=== PATIENT | male | born 1930 | race Caucasian/White ===

== ENCOUNTER 2017-05-15 14:39 | Inpatient (IN) | payer MEDICARE, OTHER ==
[2017-05-15] MEDS ORDERED: Acetaminophen TAB* 325 MG PO PRN (15:53)
[2017-05-15] MEDS ORDERED: Al Hydrox/Mg Hydrox/Simet LIQ* 30 ML UDC PO PRN (15:53)
[2017-05-15] MEDS ORDERED: Aspirin EC Low Dose* 81 MG TAB.EC PO SCH (18:00)
[2017-05-15] MEDS ORDERED: [UNRECOGNIZED DRUG - OTHER] PO SCH (18:00)
[2017-05-15] MEDS ORDERED: NON FORMULARY MED* (Melatonin [Melatonin] 5 MG) PO SCH (18:00)
[2017-05-15] MEDS: Atorvastatin* 10 MG TAB PO SCH (18:15)
[2017-05-15] MEDS: Metoprolol Succinate XL TAB* 25 MG PO SCH (18:16)
[2017-05-15 18:32] LABS: INR 0.94 (0.77-1.02)
[2017-05-15 18:40] LABS: EGFR Non-African American 104.7 (>60)
--- NOTE | 2017-05-15 19:49 | RAD ---
INDICATION: Subacute CVA. COMPARISON: There are no prior studies available for comparison. TECHNIQUE: Multiple grayscale, color and Doppler tracings of the common, internal and external carotid and vertebral arteries were obtained. Stenosis estimations reflect velocity criteria that it been correlated to angiographic stenosis calculations based on the distal internal carotid diameter. RIGHT CAROTID: There is mild to moderate hyperechoic plaque within the right carotid bulb and proximal internal carotid artery.. The peak systolic velocity in the proximal right internal carotid artery is 67 cm/s and the maximum end-diastolic velocity is 13 cm/s. The peak systolic velocity in the distal right common carotid artery is 58 cm/s and the maximum end-diastolic velocity is 10 cm/s. The internal to common carotid artery ratio is 1.2. This would be consistent with a less than 50% stenosis. LEFT CAROTID: There is mild to moderate hyperechoic plaque within the left carotid bulb and proximal internal carotid artery. The peak systolic velocity in the proximal left internal carotid artery is 72 cm/s and the maximum end-diastolic velocity is 18 cm/s. The peak systolic velocity in the distal left common carotid artery is 70 cm/s and the maximum end-diastolic velocity is 11 cm/s. The internal to common carotid artery ratio is 1.0. This would be consistent with a less than 50% stenosis. VERTEBRALS: There is antegrade flow in both vertebral arteries. IMPRESSION: THERE IS MILD TO MODERATE BILATERAL PLAQUE PRESENT WITHIN THE PROXIMAL INTERNAL CAROTID ARTERIES. NO HEMODYNAMICALLY SIGNIFICANT STENOSIS IS SEEN. CPT II Codes: 3100F
[2017-05-15] MEDS: Multivitamins/Minera Areds(NF) 1 CAP CAP PO SCH (20:14)
[2017-05-15] MEDS: Omeprazole CAP* 20 MG PO SCH (20:15)
--- NOTE | 2017-05-15 20:33 | HP ---
ADMISSION HISTORY AND PHYSICAL: DATE OF ADMISSION: 05/15/17 REFERRING FACILITY: [facility]. Attending physician there was Dr. Renetta Skaggs. PRIMARY CARE PHYSICIAN: Unknown. ADMITTING AND ATTENDING PHYSICIAN: Fabrice Gomez MD * (DICTATED BY MARVIN RICHARDS NP) CHIEF COMPLAINT: Falls and recent stroke. HISTORY OF PRESENT ILLNESS: This is an 86-year-old male who has a history of Lewy body dementia. He lives at [facility]. He normally is very high functioning, although he does have his baseline dementia and then suddenly he felt he was on the floor looking up at the ceiling and it was questionable whether he actually syncopized and he does not know what happened given that he has a Lewy body dementia. It is unclear what actually precipitated the event. It looks like the patient was diagnosed with urinary tract infection on . Also per the record, the patient had a stroke approximately 3 weeks ago; however, no acute intervention was taken at that time. At this point, the patient was CAT scanned after his fall and it looks like he may have had an additional stroke on top of the old one. The head CT showed new abnormality and a contrast CT was also obtained, which showed a subacute stroke in the right frontal region. Because [facility] does not have neuro services available, a call was made to Dr. Brenda Kay, who was on- call for Dr. Arriaza and arrangements were made to transfer the patient to us for admission for further workup of this subacute finding. Due to the patient's baseline dementia, review of systems is difficult to obtain. He is not in any obvious distress. He does not report a headache or fever or chills. He does not have a good recollection of the event. PAST MEDICAL HISTORY: Significant for per the report received from the previous institution, the patient has heart disease, lung disease, cancer and mental disorders, dementia, and 2 pacemakers, balance problems, and it does not give any definitive whether he has COPD or coronary artery disease or any valvular disease and the patient is not able to articulate that. Hypertension. PAST SURGICAL HISTORY: There is not any surgical history listed here as well. The patient does state that he does have hypertension. FAMILY HISTORY: Unable to obtain. SOCIAL HISTORY: Because the patient lives in a home, I am assuming no substance abuse or alcohol use. It does state in the report that he was a former smoker. PHYSICAL EXAMINATION VITAL SIGNS: Currently, blood pressure 185/98, O2 saturation 95% on room air, respiratory rate 16, heart rate 88, temperature 98.6. HEENT: The patient is atraumatic, normocephalic. PERRLA with nonicteric sclerae. NECK: Supple, nontender. No JVD noted. No thyromegaly appreciated. CARDIOVASCULAR: Heart rate and rhythm are regular. S1, S2 present. No murmurs , gallops, or rubs. CHEST WALL: He does have on the left anterior chest 2 surgical scars, which appear to be where his pacemakers were inserted. ABDOMEN: Soft, nontender. MUSCULOSKELETAL: No clubbing. No cyanosis. No edema. He has +2 distal pulses palpable. He has brisk cap refill. It is my understanding he is ambulatory, although I did not witness this. NEUROLOGIC: He is alert, oriented to person, not oriented to place or time. The patient required several moments of prompting. He did articulate . Beyond that, there were no focal neurologic deficits noted upon exam. PSYCHIATRIC: He was pleasant and appropriate. SKIN: Warm, dry, and intact. LABORATORY DATA: Laboratories from the ER pending, but from the previous facility it appears that sodium 143, chloride 106, BUN 11, glucose 107, potassium 3.9, CO2 of 32, creatinine 0.8. Calcium 9.2. Troponin was 0.015. ALT 23, AST 18. I do not have a CBC. IMAGING: Per the reports that we obtained from the sending facility, it shows subacute infarct on the CAT scan with contrast in the right frontal region of the brain. Dr. Brenda Kay will be at bedside to evaluate the patient and evaluate the films. IMPRESSION: 1. Fall status post cerebrovascular accident, rule out new infarct. 2. History of hypertension. 3. History of Lewy body dementia. 4. History of gastroesophageal reflux disease. 5. History of pacemaker insertion, perhaps underlying cardiac disease. PLAN: The patient has been admitted to medical service. Dr. Brenda Kay has already been consulted. Plan is to obtain a MRI and echocardiogram and ultrasound of the patient's carotids. He is already on aspirin at baseline. We will evaluate the results of these tests and then defer to Neurology for any further recommendations. At this point, the patient is neurologically intact. We will continue his home medications. He is a full code according to the report that we have received, and I believe either his daughter or his are his healthcare proxies. They are not at the bedside for this exam; however, it does appear from the paperwork that they were at the bedside at [facility]. We expect the patient's stay to be at least 2 days. This plan has been discussed with Dr. Franklyn Gomez who is the attending on this admission. The rest of the patient's course will be determined by further diagnostics, laboratories and any other info from other providers is warranted during this admission. MARVIN RICHARDS NP [id number]/[facility] #: [id number] YUE
[2017-05-15 20:43] LABS: ABS Basophils 0.1 10^3/ul (0-0.2); ABS Eosinophils 0.3 10^3/ul (0-0.6); ABS Lymphocytes 1.9 10^3/ul (1.0-4.8); ABS Monocytes 0.8 10^3/ul (0-0.8); ABS Neutrophils 4.3 10^3/ul (1.5-7.7); ABS Nucleated RBC 0 10^3/ul; Eosinophil % 3.8 % (0-6); Hematocrit 40 % (42-52); Hemoglobin 13.6 g/dl (14.0-18.0); Lymphocyte % 25.6 % (25-47); Mean Corpuscular HGB Conc 34 g/dl (31-36); Mean Corpuscular Hemoglobin 33 pg (27-31); Mean Corpuscular Volume 95 fL (80-94); Mean Platelet Volume 9 um3 (7.4-10.4); Nucleated Red Blood Cells % 0.1; Platelet Count 140 10^3/ul (150-450); Red Blood Count 4.17 10^6/ul (4.0-5.4); Red Cell Distribution Width 13 % (10.5-15); White Blood Count 7.3 10^3/ul (3.5-10.8)
--- NOTE | 2017-05-15 21:16 | CONS ---
NEUROLOGY CONSULTATION: DATE OF CONSULT: 05/15/17 LOCATION: The patient is in the emergency department. REASON FOR CONSULT: Subacute stroke. HISTORY OF PRESENT ILLNESS: Minor Haq is an 86-year-old man with a history of Lewy body dementia, who was transferred from the [facility] today after he was found to have a probable subacute right frontal stroke. I spoke with Dr. Skaggs in the ER earlier today, who reported that he had come in with falls including this morning. The patient's dementia limits the history , but he does report that he believes he fell in the bathroom this morning. Apparently, he had been having more falls at home recently, but no other clear symptoms of stroke. He was brought to the emergency department and a CT scan of the brain suggested the presence of a mass versus a subacute stroke in the right frontal region and when this was followed up with a CT with contrast and showed gyral enhancement, it was felt to represent a subacute stroke and he was transferred here for neurologic consultation and stroke workup. The patient tells me that he has been having some increased trouble walking recently and thinks that his left leg is more of a problem than his right leg. He, otherwise, denies any new weakness in his arms or legs or numbness. He denies any vision changes. When asked if he has any swallowing difficulty, he says that he has some mucus, but other denies any dysphagia. He denies any vertigo. PAST MEDICAL HISTORY: According to records available in the outpatient record as I do not have access to his [facility] records right now, include the following : 1. Lewy body dementia. 2. BPH. 3. Hypertension. 4. Hyperlipidemia. 5. Overactive bladder. 6. Prostate cancer. 7. Macular degeneration. 8. Presence of a pacemaker. HOME MEDICATIONS: 1. Guaifenesin 200 mg q.4 hours p.r.n. 2. Bismuth p.r.n. 3. Maalox p.r.n. 4. Acetaminophen 650 mg q.4 hours p.r.n. 5. Milk of magnesia. 6. Omeprazole 20 mg b.i.d. 7. Multivitamin twice daily. 8. Melatonin 5 mg at night. 9. Metoprolol 25 mg q.p.m. 10. Atorvastatin 10 mg q.p.m. 11. Aspirin 81 mg daily. 12. Folic acid - cyanocobalamin - vitamin D 2 tablets q.p.m. 13. Vitamin D 5000 units daily. ALLERGIES: Records indicate he has no known drug allergies. FAMILY HISTORY: The patient reports that his father had some heart problems. He does not believe anybody in the family had strokes. SOCIAL HISTORY: He is and lives in assisted living with his . 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 He denies tobacco use or alcohol use. He says he used to drink a lot in his younger years, but not in many years. REVIEW OF SYSTEMS: The patient denies any new respiratory or cardiac symptoms; otherwise, as per the HPI. PHYSICAL EXAM: Vital Signs: Temperature 98.6, blood pressure 185/98, heart rate 88, oxygen saturation 95% on room air. On general examination, he is an elderly-appearing man, in no acute distress. He is very pleasant and cooperative. He has arcus senilis bilaterally. He has 2 well healed incisions over his left upper chest and a device is palpable in his left upper chest. His heart is in a regular rate and rhythm with no murmurs , rubs, or gallops. Lungs are clear to auscultation bilaterally. There are no carotid bruits. There is no extremity edema. His skin appears intact. On neurologic examination, he is fully awake and alert. He was aware it was 2017, but stated the month was August. He correctly stated age and date of . He had some difficulty describing the cookie theft picture and mentioned a potted plant instead of a cookie jar. He was able to name most objects on the stroke cards including a hammock. He had some difficulties in reading the stroke cards, making word substitutions. On cranial nerve exam, pupils were equal, round, and reactive from 3 to 2 mm bilaterally. Versions were full with the exception of some limitation of upgaze with no nystagmus. Maldonado were full to confrontation. Facial sensation and musculature was full and symmetric, though he seemed to have some decreased activation with smile on the right side. Hearing was intact to finger rub, better on the left. The palate elevates symmetrically and the tongue is midline. On motor examination, he has some increased tone in the left greater than right upper extremities. His strength is full proximally and distally with no pronator drift. Sensation is intact to pinprick in the upper and lower extremities. Reflexes are 2+ in the upper extremities, 2+ at the knees, absent at ankles with downgoing toes. Finger -to-nose is intact without ataxia. I did not ambulate him in the emergency department. DIAGNOSTIC STUDIES/LAB DATA: No laboratory data is available for my review at this time. I reviewed his CT scan of the brain without contrast, which shows an area of hypodensity in the right frontal lobe and I also questioned whether there is some subacute infarction in the right basal ganglia as well. IMPRESSION: Minor Haq is an 86-year-old man with a history of dementia, Lewy body dementia by outside records, who was transferred from [facility] for a stroke workup after a probable right frontal subacute stroke was identified on CT scan, which was done secondary to increased falls at home. He does not have any clear focal weakness on his exam , but his gait imbalance may very well be secondary to this subacute stroke. Ideally, we would get MRI scan of the brain to evaluate the territories of stroke, but the presence of the pacemaker, is most likely going to preclude this. He will come into the hospital for monitoring on telemetry as well as echocardiogram, fasting lipid profile in the morning as well as hemoglobin A1c. He should have therapy evaluations including Physical Therapy for recommendations on his rehab needs. I would suggest changing him over to Plavix 75 mg daily and he will need to be taken off of omeprazole as there is an interaction between the two. He will also have carotid ultrasound. Thank you for this consultation. [id number]/[facility] #: [id number] YUE
[2017-05-16] MEDS: Omeprazole CAP* 20 MG PO SCH (07:30)
[2017-05-16] MEDS ORDERED: hydrALAZINE IV* 20 MG/ML VIAL IV SLOW PU PRN (07:49)
[2017-05-16] MEDS: Multivitamins/Minera Areds(NF) 1 CAP CAP PO SCH ×2 (08:54→20:17)
[2017-05-16] MEDS: Cholecalciferol TAB* 1000 UNITS PO SCH (09:03)
--- NOTE | 2017-05-16 13:04 | PN ---
Subjective Date of Service: 05/16/17 Interval History: Pt is feeling well. He denies any pain. He denies SOB. He states he did fine when he got up to the chair earlier today. Objective Active Medications: Acetaminophen (Tylenol Tab*) 650 mg PO Q4H PRN PRN Reason: FEVER/PAIN Al Hydrox/Mg Hydrox/Simethicone (Maalox Plus*) 15 ml PO Q4H PRN PRN Reason: NAUSEA Aspirin (Aspirin Ec Low Dose*) 81 mg PO QPM [facility] Last Admin: 05/15/17 18:15 Dose: 81 mg Atorvastatin Calcium (Lipitor*) 10 mg PO QPM [facility] Last Admin: 05/15/17 18:15 Dose: 10 mg Cholecalciferol (Vitamin D Tab*) 5,000 units PO DAILY [facility] Last Admin: 05/16/17 09:03 Dose: 5,000 units Hydralazine HCl (Apresoline Iv*) 5 mg IV SLOW PU Q6H PRN PRN Reason: Systolic Bp Greater Than: 180 Last Admin: 05/16/17 08:58 Dose: 5 mg Metoprolol Succinate (Toprol Xl Tab*) 25 mg PO QPM [facility] Last Admin: 05/15/17 18:16 Dose: 25 mg Multivitamins/Minerals (Preservision Areds(Multivitamins/Mineral)(Nf)) 1 cap PO BID [facility] Last Admin: 05/16/17 08:54 Dose: Not Given Non-Formulary Medication (Folic Vare-Dkbdinwgipgvzk-Zza [D 1000 Plus Aloe]) 2 tab PO QPM [facility] Last Admin: 05/15/17 18:03 Dose: Not Given Non-Formulary Medication (Melatonin [Melatonin]) 5 mg PO QPM [facility] Last Admin: 05/15/17 17:51 Dose: Not Given Omeprazole (Prilosec Cap*) 20 mg PO BID [facility] Last Admin: 05/16/17 07:30 Dose: 20 mg Vital Signs - 8 hr 05/16/17 05/16/17 07:48 07:56 Temperature 97.6 F Pulse Rate 61 Respiratory 16 16 Rate Blood Pressure 181/73 (mmHg) O2 Sat by Pulse 97 Oximetry Oxygen Devices in Use Now: None Appearance: Elderly male sitting up in a chair, NAD Eyes: No Scleral Icterus Ears/Nose/Mouth/Throat: Mucous Membranes Moist Respiratory: Symmetrical Chest Expansion and Respiratory Effort, Clear to Auscultation Cardiovascular: NL Sounds; No Murmurs; No JVD, RRR, No Edema Abdominal: NL Sounds; No Tenderness; No Distention Extremities: No Clubbing, Cyanosis Skin: No Rash or Ulcers, No Nodules or Sclerosis Neurological: - - pleasantly confused, states his is in the hospital because of falls (she is not) Result Diagrams: 05/15/17 20:13 05/15/17 20:13 Assess/Plan/Problems-Billing Mr Haq is an 86 yo M who has a h/o Lewy Body Dementia, HTN, HLD and overactive bladder who presented to [facility] because of increased falls and was found to have a subacute CVA of the R frontal CVA and was sent to [facility] for further evaluation. - Patient Problems (1) CVA (cerebral vascular accident) Current Visit: Yes Status: Acute Code(s): I63.9 - CEREBRAL INFARCTION, UNSPECIFIED SNOMED Code(s): 333075956 Comment: The patient appears to have had a subacute CVA. I suspect it may be leading to his falls. Can not have MRI given pacemaker. Echo pending. No hemodynamically significant carotid stenosis noted. Will get PT/OT evals to ensure he is safe to return to his assisted living facilitly. Will change from ASA to plavix as recommended by Dr. Kay. Will also change from omeprazole to famotidine. (2) HTN (hypertension) Current Visit: Yes Status: Acute Code(s): I10 - ESSENTIAL (PRIMARY) HYPERTENSION SNOMED Code(s): 84102822 Comment: The patient's BP is not under optimal control. Will start amlodipine 5mg daily. (3) HLD (hyperlipidemia) Current Visit: Yes Status: Acute Code(s): E78.5 - HYPERLIPIDEMIA, UNSPECIFIED SNOMED Code(s): 09736708 Comment: Continue lipitor 10mg daily. (4) Lewy body dementia Current Visit: Yes Status: Acute Comment: Continue to re-orient as needed. Pt's mental status is at baseline. (5) DVT prophylaxis Current Visit: Yes Status: Acute Code(s): FKX8663 - SNOMED Code(s): 639714047 Comment: Start SQ heparin (6) Full code status Current Visit: Yes Status: Acute Code(s): Z78.9 - OTHER SPECIFIED HEALTH STATUS SNOMED Code(s): 348313757
[2017-05-16] MEDS: amLODIPine TAB* 5 MG PO SCH (13:52)
[2017-05-16] MEDS: Clopidogrel TAB* 75 MG PO SCH (13:52)
[2017-05-16] MEDS: Heparin VIAL(*) 5000 UNITS/ML VIAL (FIVE THOUSAND) SUBCUT SCH ×2 (13:53→20:17)
--- NOTE | 2017-05-16 15:01 | ED ---
Derian Juan Jennifer, scribed for Emre Mendez MD on 05/15/17 at 1604 . Neurological HPI - HPI Summary HPI Summary: The patient is an 86 year old male who was recommended to the ED by [facility] after he had fallen four days ago. The patient fell again this morning. He had a stroke about three weeks ago. The patient currently lives in a correction in [place] and uses a walker to get around. - History of Current Complaint Chief Complaint: EDNeurologicalDeficit Stated Complaint: POSSIBLE STROKE Time Seen by Provider: 05/15/17 15:55 Hx Obtained From: Patient Onset/Duration: Started days ago - four days ago, Still Present Timing: Constant Onset Severity: Mild Current Severity: Mild Pain Intensity: 0 Pain Scale Used: 0-10 Numeric Character: Other: - Fall Frequency: Episodes x___ - two episodes. First fall was four days ago. Second fall was this morning. Aggravating: Nothing Alleviating: Nothing Associated Signs and Symptoms: Positive: Nothing - Allergy/Home Medications Allergies/Adverse Reactions: Allergies Allergy/AdvReac Type Severity Reaction Status Date / Time No Known Allergies Allergy Verified 05/15/17 17:44 Home Medications: Home Medications Acetaminophen TAB* [Tylenol TAB*] 650 mg PO Q4H PRN 05/15/17 [History Confirmed 05/15/17] Al Hydrox/Mg Hydrox/Simet LIQ* [Maalox Plus*] 15 ml PO Q4H PRN 05/15/17 [ History Confirmed 05/15/17] Aspirin EC Low Dose* [Ecotrin EC Low Dose 81 MG*] 81 mg PO QPM 05/15/17 [ History Confirmed 05/15/17] Atorvastatin* [Lipitor*] 10 mg PO QPM 05/15/17 [History Confirmed 05/15/17] Bismuth Subsalicylate* [Peptic Relief*] 15 ml PO Q4HR PRN 05/15/17 [History Confirmed 05/15/17] Cholecalciferol TAB* [Vitamin D TAB*] 5,000 units PO DAILY 05/15/17 [History Confirmed 05/15/17] Folic Ukhb-Vujyznwmgarbel-Uno [D 1000 Plus Aloe] 2 tab PO QPM 05/15/17 [History Confirmed 05/15/17] Guaifenesin [Mucus Relief Chest Conges] 200 mg PO Q4HR PRN 05/15/17 [History Confirmed 05/15/17] Magnesium Hydroxide LIQ* [Milk of Magnesia LIQ*] 30 ml PO DAILY 05/15/17 [ History Confirmed 05/15/17] Melatonin 5 mg PO QPM 05/15/17 [History Confirmed 05/15/17] Metoprolol Succinate XL TAB* [Toprol XL TAB*] 25 mg PO QPM 05/15/17 [History Confirmed 05/15/17] Multiple Vitamins W/ Minerals [Preservision Areds 2 + Mu] 1 cap PO BID 05/15/17 [History Confirmed 05/15/17] Omeprazole CAP* [Prilosec CAP* 20 MG] 20 mg PO BID 05/15/17 [History Confirmed 05/15/17] risperiDONE TAB* [Risperdal*] 0.5 mg PO BID 05/16/17 [History Confirmed 05/16/17 ] PMH/Surg Hx/FS Hx/Imm Hx Endocrine/Hematology History: Denies: Hx Diabetes Cardiovascular History: Reports: Hx Hypertension - Immunization History Immunizations Up to Date: Yes Infectious Disease History: No Infectious Disease History: Denies: Traveled Outside the [place] in Last 30 Days - Family History Known Family History: Negative: Diabetes - Social History Alcohol Use: None Substance Use Type: Reports: None Smoking Status (MU): Former Smoker Review of Systems Negative: Fever Neurological: Other - Fall All Other Systems Reviewed And Are Negative: Yes Physical Exam - Summary Physical Exam Summary: Appearance: The patient is well-nourished in no acute distress and in no acute pain. Skin: The skin is warm and dry and skin color reflects adequate perfusion. HEENT: ~The head is normocephalic and atraumatic. The pupils are equal and reactive. The conjunctivae are clear and without drainage. ~Nares are patent and without drainage. ~Mouth reveals moist mucous membranes and the throat is without erythema and exudate. ~The external ears are intact. The ear canals are patent and without drainage. The tympanic membranes are intact. Neck: the neck is supple with full range of motion and non-tender. There are no carotid bruits. ~There is no neck vein distension. Respiratory: Chest is non-tender. ~Lungs are clear to auscultation and breath sounds are symmetrical and equal. Cardiovascular: Heart is regular rate and rhythm. ~There is no murmur or rub auscultated. ~~There is no peripheral edema and pulses are symmetrical and equal. Abdomen: The abdomen is soft and non-tender. ~There are normal bowel sounds heard in all four quadrants and there is no organomegaly palpated. Musculoskeletal: There is no back tenderness noted. ~Extremities are non-tender with full range of motion. ~There is good capillary refill. ~There is no peripheral edema or calf tenderness elicited. Neurological: Patient is alert and oriented to person, place and time. ~The patient has symmetrical motor strength in all four extremities. ~Cranial nerves are grossly intact. Deep tendon reflexes are symmetrical and equal in all four extremities. Psychiatric: The patient has an appropriate affect and does not exhibit any anxiety or depression. Triage Information Reviewed: Yes Vital Signs On Initial Exam: Initial Vitals Temp Pulse Resp BP Pulse Ox 98.6 F 88 16 185/98 95 05/15/17 14:41 05/15/17 14:41 05/15/17 14:41 05/15/17 14:41 05/15/17 14:41 Vital Signs Reviewed: Yes Diagnostics - Vital Signs Vital Signs Temp Pulse Resp BP Pulse Ox 05/15/17 14:41 98.6 F 88 16 185/98 95 - Laboratory Result Diagrams: 05/15/17 20:13 05/15/17 20:13 Lab Statement: Any lab studies that have been ordered have been reviewed, and results considered in the medical decision making process. Course/Dx - Course Course Of Treatment: Mr. Haq was sent over from [facility]. He was found to have a subacute CVA and is being admitted for further W/U. - Diagnoses Provider Diagnoses: CVA (cerebral vascular accident) Discharge - Discharge Plan Condition: Good Disposition: ADMITTED TO [facility] documentation as recorded by the Derian keith Jennifer accurately reflects the service I personally performed and the decisions made by me, Emre Mendez MD.
--- NOTE | 2017-05-16 15:07 | ECHO ---
Patient: FLORENCE FONTANA [facility] Rec#: [id number] : 1930 Date: 05/16/2017 Age: 86y Height: 160 cm / 63.0 in Weight: 65.8 kg / 145.0 lbs Sex: M BSA: 1.7 Room#: 439 Admit Date#: 05/15/2017 Type: Inpatient Referring: Mihaela Carvalho Reading: Evaristo Huntley MD Line Runner: Catherine Reyes RN RDCS Transthoracic Echocardiogram Indication: CVA BP: 155/65 HR: 75 Rhythm: Paced Findings History: HTN, pacemaker, lung disease, Lewy body dementia, GERD Technical Comments: The study quality is fair. Completed at 1330. Left Ventricle: The left ventricular chamber size is normal. Mild to moderate concentric left ventricular hypertrophy is observed. There is increased basal septal hypertrophy noted without evidence of an increased gradient across the left ventricular outflow tract. Global left ventricular wall motion and contractility are within normal limits. Left ventricular systolic function is at the lower limits of normal. The estimated ejection fraction is 50-55%. There is abnormal ventricular septal wall motion consistent with right ventricular pacemaker. There is an E to A reversal in the mitral valve flow pattern suggestive of diastolic dysfunction. Left Atrium: The left atrium is mildly dilated. Right Ventricle: The right ventricular cavity size is normal. The right ventricular global systolic function is low normal. A pacemaker wire is visualized in the right ventricle. Right Atrium: The right atrial cavity size is normal. A pacemaker wire is visualized in the right atrium. Aortic Valve: The aortic valve is trileaflet. The aortic valve leaflets are moderately thickened. Systolic excursion of the aortic valve cusps is reduced. There is aortic annular calcification. There is mild aortic regurgitation. There is mild aortic stenosis. The mean gradient of the aortic valve is 7.6 mmHg. The peak instantaneous gradient of the aortic valve is 13.3 mmHg. The aortic valve area, by peak velocities, is calculated at 1.8 cm2. The aortic valve area, by VTI's, is calculated at 1.8 cm2. Mitral Valve: There is mitral annular calcification. The mitral valve leaflets are mildly thickened. There is mild mitral regurgitation. There is no evidence of mitral stenosis. Tricuspid Valve: The tricuspid valve leaflets are normal. There is trace to mild tricuspid regurgitation. No pulmonary hypertension is noted. There is no tricuspid stenosis. Pulmonic Valve: The pulmonic valve structure is not well visualized. There is a trace pulmonic regurgitation. There is no pulmonic stenosis. Pericardium: There is no significant pericardial effusion. A pericardial fat pad is visualized. Aorta: There is no dilatation of the ascending aorta. The aortic arch is not well visualized. There is no dilation of the aortic root. Pulmonary Artery: The main pulmonary artery is not well visualized. Venous: The inferior vena cava appears normal in size. There is an approximate 50% respiratory change in the inferior vena cava dimension. Summary: There was not any prior study for comparison. Conclusions The left ventricular chamber size is normal. Mild to moderate concentric left ventricular hypertrophy is observed. There is increased basal septal hypertrophy noted without evidence of an increased gradient across the left ventricular outflow tract. The estimated ejection fraction is 50-55%. The left atrium is mildly dilated. A pacemaker wire is visualized in the right ventricle. A pacemaker wire is visualized in the right atrium. There is mild aortic regurgitation. There is mild aortic stenosis. The mean gradient of the aortic valve is 7.6 mmHg. The aortic valve area, by peak velocities, is calculated at 1.8 cm2. There is mild mitral regurgitation. There is trace to mild tricuspid regurgitation. There is a trace pulmonic regurgitation. Measurements Name Value Normal Range RVDdMajor (2D) 2.6 cm (2.2 - 4.4) RAd ISD 4CH 4.8 cm (3.4 - 4.9) RA (A4C)W 3.5 cm (2.9 - 4.6) IVSd (2D) 1.6 cm (0.6 - 1) LVPWd (2D) 1.1 cm (0.6 - 1) LVIDd (2D) 4.6 cm (3.6 - 5.4) LVIDs (2D) 3.4 cm - Aortic Annulus 2 cm (1.4 - 2.6) Ao root diameter (2D) 3.2 cm (2.1 - 3.5) Ascending Ao 2.9 cm (2.1 - 3.4) LA dimension (AP) 2D 3.6 cm (2.3 - 3.8) LAd ISD 4CH 5.7 cm (2.9 - 5.3) LA ISD 4CH W 3.6 cm (2.5 - 4.5) Name Value Normal Range LA ESV SP 4CH (A/L) 55 ml - LA ESV SP 2CH (A/L) 38 ml - LA ESV BP (A/L) 50 ml - LA ESV BP (A/L) index 29.3 ml/m2 - LA ESV SP 4CH (MOD) 52 ml - LA ESV SP 2CH (MOD) 36 ml - Name Value Normal Range MV E-wave Vmax 0.47 m/sec - MV deceleration time 305 msec - MV A-wave Vmax 1.1 m/sec - MV E:A ratio 0.42 ratio - LV septal e' Vmax 0.05 m/sec - LV lateral e' Vmax 0.05 m/sec - LV E:e' septal ratio 9.4 ratio - LV E:e' lateral ratio 9.4 ratio - Name Value Normal Range AV Vmax 1.9 m/sec - AV VTI 43.5 cm - AV peak gradient 13.3 mmHg - AV mean gradient 7.6 mmHg - LVOT diameter 2 cm - LVOT Vmax 1.1 m/sec - LVOT VTI 25.4 cm - LVOT peak gradient 5.1 mmHg - LVOT mean gradient 2.9 mmHg - DOI (VTI) 0.58 ratio - DOI (Vmax) 0.58 ratio - SV LVOT 76 ml - LELAND (continuity Vmax) 1.8 cm2 - LELAND (continuity VTI) 1.8 cm2 - Name Value Normal Range TR Vmax 2.3 m/sec - TR peak gradient 22 mmHg - RAP 8 mmHg - IVC diameter 1.5 cm - Name Value Normal Range PV Vmax 0.76 m/sec -
[2017-05-16] MEDS: Atorvastatin* 10 MG TAB PO SCH (18:46)
[2017-05-16] MEDS: Metoprolol Succinate XL TAB* 25 MG PO SCH (18:46)
[2017-05-16] MEDS: Famotidine TAB* 20 MG PO SCH (20:17)
[2017-05-16] MEDS ORDERED: CMC:Melatonin (NF) 3 MG TAB PO SCH (21:00)
--- NOTE | 2017-05-16 23:11 | PN ---
NEUROLOGY FOLLOWUP NOTE: DATE OF SERVICE: 05/16/17 HISTORY: No acute overnight events. The patient is a little bit confused today , thinking that his is here in the hospital for falls and when I entered the room, he was trying to find out what room she was in. He denies any new neurologic deficits. IN-HOSPITAL MEDICATIONS: 1. Tylenol 650 q.4 p.r.n. 2. Maalox 15 mL p.r.n. 3. Norvasc 5 mg daily, started today. 4. Lipitor 10 mg q.p.m. 5. Vitamin D 5000 units daily. 6. Plavix 75 mg daily. 7. Famotidine 20 mg b.i.d., to start tonight. 8. Heparin 5000 units q.8 hours. 9. Hydralazine 5 mg IV q.6 hours p.r.n. 10. Metoprolol 25 mg q.p.m. 11. Multivitamins. 12. Folic qsls-tgahccfuslxmlh-zjwlrem D 2 tablets q.p.m. 13. Melatonin 5 mg q.p.m. PHYSICAL EXAMINATION: Vital Signs: Temperature 97.6, blood pressure 181/73, heart rate 61, oxygen saturation 97% on room air. His blood pressures have ranged from the highest systolic of 191 and the highest diastolic of 98. His telemetry has shown a paced rhythm. On general examination, he is a well-appearing, pleasant elderly gentleman. He has arcus senilis. His heart is in a regular rate and rhythm with no obvious murmurs. His lungs are clear to auscultation bilaterally. On neurologic examination, he has no dysarthria. Pupils are equal, round, and reactive from 3 to 2 mm bilaterally. Versions are full with the exception of some limitation of upgaze. Maldonado are full confrontation. His face is symmetric. There is no clear focal weakness on manual muscle testing. There is no sensory deficit. I did ambulate him with a walker a short distance in his room and when turning, he tended to drag the left foot and not move it well. DATA: Carotid ultrasound showed [id number] plaque in the proximal ICAs bilaterally with no hemodynamically significant stenosis. No fasting lipid profile was collected today. His CBC showed a slightly low hematocrit of 40, hemoglobin of 13.6, and platelets of 140,000 with a white count of 7.3. Coagulation studies were normal. CMP showed a slightly low CO2 of 21, protein of 6.3, and otherwise is unremarkable. IMPRESSION: Minor Haq is an 86-year-old man with presumed Lewy body dementia , who came in with a subacute right frontal stroke after he was evaluated in the [facility] for falls. His gait imbalance is most likely secondary to this subacute stroke. He, otherwise, looks quite well in terms of any sequelae from this stroke. I have ordered a fasting lipid profile for tomorrow and added on hemoglobin A1c to his labs from yesterday. He has pending echocardiogram as well as PT evaluations. He has been changed to Plavix and omeprazole was changed out for famotidine. I agree with starting an additional blood pressure agent at this point. His ultimate goal blood pressure should be less than 140/80, potentially more aggressive than this, but in a gentleman of his age, we will need to be careful with not making him too hypotensive. Dr. Galvin and Dr. Morales will be taking over the service over the weekend and will receive sign out on the patient. I believe that the patient did already have a Neurology consultation scheduled with Dr. Arriaza for his dementia and so that appointment could be kept provided that he is able to make it. [id number]/[facility] #: [id number] [facility]
[2017-05-17] MEDS: Heparin VIAL(*) 5000 UNITS/ML VIAL (FIVE THOUSAND) SUBCUT SCH (04:56)
[2017-05-17] MEDS: Multivitamins/Minera Areds(NF) 1 CAP CAP PO SCH (07:24)
[2017-05-17] MEDS: Clopidogrel TAB* 75 MG PO SCH (07:38)
[2017-05-17] MEDS: Cholecalciferol TAB* 1000 UNITS PO SCH (07:38)
[2017-05-17] MEDS: amLODIPine TAB* 5 MG PO SCH (07:38)
[2017-05-17] MEDS: Famotidine TAB* 20 MG PO SCH (07:38)
--- NOTE | 2017-05-17 12:42 | PN ---
Progress Note - Progress Note Date of Service: 05/17/17 Note: Time spent on discharge 45 minutes
[2017-05-17 13:13] VITALS: BP 140/65
--- NOTE | 2017-05-18 11:36 | DS ---
CC: Felton Arriaza MD DISCHARGE SUMMARY: DATE OF ADMISSION: DATE OF DISCHARGE: 05/17/17 HISTORY: This 86-year-old man presented with a history of fall. He was brought to [facility] . I note he had been treated for urinary tract infection on 05/12/17. CT scan at [facility] showed a subacute right frontal infarct. He was transferred here for neurologic evaluation and treatm ent. He was seen by Dr. Kay in consultation. She agreed with the diagnosis of right frontal lobe acute infarct. Clopidogrel was added to his regimen. His omeprazole was changed to famotidine to avoid in teraction with the clopidogrel. The patient was able to walk with a walker and contact guarding. The patient had amlodipine added for better blood pressure control as well. FINAL DIAGNOSES: 1. Acute right frontal cerebrovascular infarct. 2. Lewy body dementia. 3. Hypertension. 4. Gastroesophageal reflux disease. 5. Permanent pacemaker. DISCHARGE MEDICATIONS: 1. Amlodipine 5 mg daily. 2. Clopidogrel 75 mg daily. 3. Famotidine 20 mg b.i.d. 4. Bismuth subsalicylate 15 mL every 4 hours p.r.n. 5. Maalox Plus 15 mL every 4 hours p.r.n. 6. Acetaminophen 650 mg every 4 hours p.r.n. 7. Milk of Magnesia 30 mL daily. 8. Multivitamin with mineral b.i.d. 9. Melatonin 5 mg h.s. 10. Metoprolol succinate 25 mg h.s. 11. Atorvastatin 10 mg h.s. 12. Aspirin 81 mg h.s. 13. Calcium with D3 two tabs daily. 14. Calcium 5000 units daily. 15. Guaifenesin 200 mg every 4 hours p.r.n. 16. Risperidone 0.5 mg b.i.d. [id number]/[facility] #: [id number]
== END 2017-05-17 14:00 | disposition home or self-care (01) | DRG 66 ==
LOC: ED 14:39 → MEDTELE 15:52
PROVIDERS: ADMIT Nurse Practitioner Adult Health; ATTEND Internal Medicine
DX: I63.9 Cerebral infarction, unspecified (principal); F02.80 Dementia in other diseases classified elsewhere, unspecified severity, without behavioral disturbance, psychotic disturbance, mood disturbance, and anxiety; G31.83 Neurocognitive disorder with Lewy bodies; E78.5 Hyperlipidemia, unspecified; I10 Essential (primary) hypertension; K21.9 Gastro-esophageal reflux disease without esophagitis; R26.9 Unspecified abnormalities of gait and mobility; N32.81 Overactive bladder; N40.0 Benign prostatic hyperplasia without lower urinary tract symptoms; H35.30 Unspecified macular degeneration; Z85.46 Personal history of malignant neoplasm of prostate; Z95.0 Presence of cardiac pacemaker; Z79.02 Long term (current) use of antithrombotics/antiplatelets; Z86.73 Personal history of transient ischemic attack (TIA), and cerebral infarction without residual deficits; Z87.440 Personal history of urinary (tract) infections; Z87.891 Personal history of nicotine dependence; Z82.49 Family history of ischemic heart disease and other diseases of the circulatory system
CPT/HCPCS: 36415; 80053; 80061; 83036; 85025; 85610; 93306; 93880; 99284; A9270-GY; J0360; J1644

== ENCOUNTER 2017-06-06 08:51 | Emergency (ER) | payer MEDICARE, OTHER ==
[2017-06-06 11:17] LABS: Urine Appearance Clear; Urine Blood Negative (Negative); Urine Color Straw; Urine Ketones Negative (Negative); Urine Protein Negative (Negative); Urine Specific Gravity 1.009 (1.010-1.030); Urine Urobilinogen Negative (Negative)
[2017-06-06 11:56] VITALS: BP 154/76
--- NOTE | 2017-06-06 17:36 | ED ---
Complex/Multi-Sys Presentation - HPI Summary HPI Summary: 86 male presents to ED BIBA and accompanied by and daughter with no complaints. Patient states he feels fine. Patient does suffer from dementia however is alert and oriented. Daughter states she was called by patient's shelter facility due to patient having difficulty ambulating this morning, having shakey legs and woke up with a wet t-shirt. Denies fever/chills. No urinary symptoms. Patient wears a depends. Just recently off antibiotics for treatment for UTI. Patient denies any weakness currently. Daughter was concerned because patient just recently had a CVA on the 15 of may. Negative stroke scale assessment on EMS transport. Also was concerned because he woke up with a wet t-shirt as if he had a fever however denies any cough, congestion or other complaints and is afebrile. Patient was talking about his past friends who , and it is thought he possibly had a nightmare. Has lewy body dementia. No recent falls or head injury. - History Of Current Complaint Chief Complaint: EDExtremityLower Time Seen by Provider: 06/06/17 09:23 Hx Obtained From: Patient, Family/Car Builder - daughter Hx From Patient Unobtainable Due To: Dementia Severity Currently: None Aggravating Factor(s): none Alleviating Factor(s): none Associated Signs And Symptoms: Positive: Other - "trouble walking". Negative: SOB, Cough, Hemoptysis, Chest Pain, Nausea, Vomiting, Diarrhea, Back Pain, Dysuria - Allergies/Home Medications Allergies/Adverse Reactions: Allergies Allergy/AdvReac Type Severity Reaction Status Date / Time No Known Allergies Allergy Verified 05/15/17 17:44 PMH/Surg Hx/FS Hx/Imm Hx Endocrine/Hematology History: Denies: Hx Diabetes Cardiovascular History: Reports: Hx Hypercholesterolemia, Hx Hypertension Sensory History: Reports: Hx Hearing Aid Denies: Hx Contacts or Glasses Opthamlomology History: Denies: Hx Contacts or Glasses Neurological History: Reports: Hx Dementia, Hx Transient Ischemic Attacks (TIA) - Surgical History Surgery Procedure, Year, and Place: n/a - Immunization History Immunizations Up to Date: Yes Infectious Disease History: No Infectious Disease History: Denies: Traveled Outside the [place] in Last 30 Days - Family History Known Family History: Negative: Diabetes - Social History Alcohol Use: None Substance Use Type: Reports: None Smoking Status (MU): Former Smoker Review of Systems Constitutional: Negative Cardiovascular: Negative Respiratory: Negative Gastrointestinal: Negative Skin: Negative Positive: Weakness - ?? All Other Systems Reviewed And Are Negative: Yes Physical Exam Triage Information Reviewed: Yes Vital Signs On Initial Exam: Initial Vitals BP 189/86 06/06/17 08:58 improved BP 154/76 temp: 98.5F HR; 63 bpm o2: 98 resp: 16 Vital Signs Reviewed: Yes Completion Of Physical Exam Limited Due To: Dementia Appearance: Positive: Well-Appearing, No Pain Distress, Well-Nourished Skin: Positive: Warm, Skin Color Reflects Adequate Perfusion, Dry. Negative: Cold, Numb, Cyanosis @, Pale, Erythema @ Head/Face: Positive: Normal Head/Face Inspection. Negative: Scalp Eyes: Positive: EOMI, TIA, Conjunctiva Clear, Other: - cataracts bilaterally noted ENT: Positive: Normal ENT inspection, Hearing grossly normal, Pharynx normal Neck: Positive: Supple, Nontender Respiratory/Lung Sounds: Positive: Clear to Auscultation, Breath Sounds Present. Negative: Rales, Rhonchi, Wheezes Cardiovascular: Positive: Normal, RRR, Pulses are Symmetrical in both Upper and Lower Extremities. Negative: Bradycardia, Murmur, Rub Abdomen Description: Positive: Nontender, Soft Bowel Sounds: Positive: Present Male Genital Exam: Positive: normal genitalia Musculoskeletal: Positive: Normal, Strength/ROM Intact Neurological: Positive: Normal, Sensory/Motor Intact, Alert, Oriented to Person Place, Time - x 2 patient has dementia, CN Intact II-III, Reflexes Intact, NV Bundle Intact Distally, Normal Gait - patient gaited around ER with walker without difficulty, Finger to Nose, Facial Symmetry, Speech Normal, Other - negative stroke scale. Negative: Facial Droop, Slurred Speech - Ana Coma Scale Best Eye Response: 4 - Spontaneous Best Motor Response: 6 - Obeys Commands Best Verbal Response: 5 - Oriented Coma Scale Total: 15 Diagnostics - Vital Signs Vital Signs Temp Pulse Resp BP Pulse Ox 06/06/17 11:55 98.3 F 65 16 154/76 95 06/06/17 11:30 53 155/59 98 06/06/17 11:00 55 154/76 97 06/06/17 10:30 65 150/64 95 06/06/17 10:00 53 147/60 96 06/06/17 09:30 69 152/78 94 06/06/17 09:00 84 162/85 94 06/06/17 08:59 98.2 F 83 16 175/90 95 06/06/17 08:58 189/86 - Laboratory Lab Results: Lab Results 06/06/17 Range/Units 11:02 Urine Color Straw Urine Appearance Clear Urine pH 7.0 (5-9) Ur Specific [place] 1.009 L (1.010-1.030) Urine Protein Negative (Negative) Urine Ketones Negative (Negative) Urine Blood Negative (Negative) Urine Nitrate Negative (Negative) Urine Bilirubin Negative (Negative) Urine Urobilinogen Negative (Negative) Ur Leukocyte Esterase 1+ H (Negative) Urine WBC (Auto) Trace(0-5/hpf) (Absent) Urine RBC (Auto) Trace(0-2/hpf) (Absent) Ur Squamous Epith Cells Present H (Absent) Urine Bacteria Absent (Absent) Urine Glucose Negative (Negative) Urine Ascorbic Acid * H (Negative) Lab Statement: Any lab studies that have been ordered have been reviewed, and results considered in the medical decision making process. Complex Multi-Symp Course/Dx Course Of Treatment: urianalysis obtained and negative. patient has no complaints. does not appear to be in any distress and has normal vitals and physical exam. no other concerns at this time. patient ambulated without difficulty around ER. does not appear to need further work up at this time. follow up with pcp. aware of worsening signs and symptoms to watch out for, and return if occur. symptoms probably due to lewy body dementia. has neuro appt with Dr Arriaza on Friday06/09/17. - Diagnoses Differential Diagnoses/HQI/PQRI: Urinary Tract Infection Provider Diagnoses: Dementia, History of unsteady gait Discharge - Discharge Plan Condition: Stable Disposition: HOME Patient Education Materials: Dementia (ED) Referrals: No Primary Care Phys,NOPCP [Primary Care Provider] - Additional Instructions: Please follow up with Dr Arriaza Friday like you are scheduled. Any new or worsening symptoms please return to ED immediately. Please use walker when walking to assist yourself.
== END 2017-06-06 11:57 | disposition home or self-care (01) ==
LOC: ED 08:51
DX: F03.90 Unspecified dementia, unspecified severity, without behavioral disturbance, psychotic disturbance, mood disturbance, and anxiety (principal); R26.89 Other abnormalities of gait and mobility; E78.00 Pure hypercholesterolemia, unspecified; I10 Essential (primary) hypertension; Z79.899 Other long term (current) drug therapy
CPT/HCPCS: 81003; 81015; 87086; 99282

== ENCOUNTER 2017-09-18 14:09 | Emergency (ER) | payer MEDICARE ==
[2017-09-18] MEDS ORDERED: NS 0.9% 1000 ML* 1,000 ML IV ONE (14:20)
[2017-09-18 14:50] LABS: ABS Basophils 0 10^3/ul (0-0.2); ABS Eosinophils 0.1 10^3/ul (0-0.6); ABS Lymphocytes 1.6 10^3/ul (1.0-4.8); ABS Monocytes 0.6 10^3/ul (0-0.8); ABS Neutrophils 3.4 10^3/ul (1.5-7.7); ABS Nucleated RBC 0 10^3/ul; Eosinophil % 2.5 % (0-6); Hematocrit 38 % (42-52); Hemoglobin 12.9 g/dl (14.0-18.0); Lymphocyte % 28.1 % (25-47); Mean Corpuscular HGB Conc 34 g/dl (31-36); Mean Corpuscular Hemoglobin 33 pg (27-31); Mean Corpuscular Volume 96 fL (80-94); Mean Platelet Volume 7.6 um3 (7.4-10.4); Nucleated Red Blood Cells % 0.1; Platelet Count 191 10^3/ul (150-450); Red Blood Count 3.96 10^6/ul (4.0-5.4); Red Cell Distribution Width 13 % (10.5-15); White Blood Count 5.8 10^3/ul (3.5-10.8)
--- NOTE | 2017-09-18 14:54 | RAD ---
HISTORY: right side weakness COMPARISONS: May 15, 2017 TECHNIQUE: Multiple contiguous axial CT scans were obtained of the head without intravenous contrast. FINDINGS: HEMORRHAGE/INFARCT: There is no hemorrhage or acute infarct. MASSES/SHIFT: There is no mass or shift. EXTRA-AXIAL SPACES: There are no extra-axial fluid collections. SULCI AND VENTRICLES: The sulci and ventricles are normal in size and position for the patient's stated age. CEREBRUM: There is right frontal encephalomalacia consistent with remote infarct. There is also encephalomalacia of the right basal ganglia consistent with remote infarct. There is hypoattenuation of the periventricular and subcortical white matter BRAINSTEM: There are no focal parenchymal abnormalities. CEREBELLUM: There are no focal parenchymal abnormalities. VESSELS: There is calcification of the cavernous segments of the internal carotid arteries bilaterally and of the distal vertebral arteries bilaterally. PARANASAL SINUSES: The paranasal sinuses are clear. ORBITS: The orbits are unremarkable. BONES AND SOFT TISSUE: No bone or soft tissue abnormalities are noted. OTHER: None IMPRESSION: 1. NO ACUTE INTRACRANIAL PATHOLOGY. 2. 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
[2017-09-18 15:02] LABS: EGFR Non-African American 81.5 (>60)
[2017-09-18 15:37] LABS: Urine Appearance Clear; Urine Blood Negative (Negative); Urine Color Straw; Urine Ketones Negative (Negative); Urine Protein Negative (Negative); Urine Specific Gravity 1.005 (1.010-1.030); Urine Urobilinogen Negative (Negative)
[2017-09-18 15:40] LABS: INR 0.97 (0.77-1.02)
[2017-09-18] MEDS ORDERED: Fluconazole 100 MG TAB* TAB PO ONE (19:15)
--- NOTE | 2017-09-18 19:28 | ED ---
Petros Juan Tiffany, scribed for Everton Cardenas MD on 09/18/17 at 1445 . HPI Chest Pain - HPI Summary HPI Summary: 87 year old M [facility] to [facility] complains of diffuse weakness since 07:30 today. He describes his symptoms as fatigue. Symptoms aggravated by nothing. Symptoms alleviated by nothing. Patient reports inability to use both legs as he uses to. He reports some chest pain sharp pain this morning. - History of Current Complaint Time Seen by Provider: 09/18/17 14:12 Hx Obtained From: Patient Onset/Duration: Started Hours Ago - at 07:30 today, Still Present Timing: Constant Chest Pain Location: Diffuse Character: Other: - sharp Aggravating Factor(s): Nothing Alleviating Factor(s): Nothing Associated Signs and Symptoms: Positive: Other: - inability to move both legs - Additional Pertinent History Primary Care Physician: [id number] - Allergy/Home Medications Allergies/Adverse Reactions: Allergies Allergy/AdvReac Type Severity Reaction Status Date / Time No Known Allergies Allergy Verified 05/15/17 17:44 Home Medications: Home Medications Bacillus Coagulans [Ra Probiotic Gummies] 2 chw PO DAILY 09/18/17 [History Confirmed 09/18/17] Cyanocobalamin TAB* [Vitamin B12 TAB*] 500 mcg PO DAILY 09/18/17 [History Confirmed 09/18/17] Escitalopram (NF) [Lexapro 5 mg (NF)] 5 mg PO DAILY 09/18/17 [History Confirmed 09/18/17] Finasteride [Proscar] 5 mg PO DAILY 09/18/17 [History Confirmed 09/18/17] Folic Acid TAB* [Folvite TAB*] 400 mcg PO DAILY 09/18/17 [History Confirmed 10/29] Mirabegron (NF) [Myrbetriq (NF)] 50 mg PO DAILY 09/18/17 [History Confirmed 10/29] Omeprazole CAP* [Prilosec CAP* 20 MG] 20 mg PO BID 09/18/17 [History Confirmed 09/18/17] Psyllium IDANIA* [Metamucil IDANIA*] 1 pkt PO DAILY 09/18/17 [History Confirmed ] Vit A/Vit C/Vit E/Zinc/Copper [Preservision Areds Softgel] 1 cap PO BID [History Confirmed 09/18/17] guaiFENesin LIQ* [Robitussin*] 10 ml PO Q4H PRN 09/18/17 [History Confirmed 10/29] PMH/Surg Hx/FS Hx/Imm Hx Previously Healthy: No Endocrine/Hematology History: Denies: Hx Diabetes Cardiovascular History: Reports: Hx Hypercholesterolemia, Hx Hypertension Sensory History: Reports: Hx Hearing Aid Denies: Hx Contacts or Glasses Opthamlomology History: Denies: Hx Contacts or Glasses Neurological History: Reports: Hx Dementia, Hx Transient Ischemic Attacks (TIA) - Surgical History Surgery Procedure, Year, and Place: n/a Infectious Disease History: Denies: Traveled Outside the [place] in Last 30 Days - Family History Known Family History: Negative: Diabetes - Social History Alcohol Use: None Hx Substance Use: No Substance Use Type: Reports: None Hx Tobacco Use: Yes Smoking Status (MU): Former Smoker Review of Systems Positive: Chest Pain - diffuse, described as sharp Neurological: Other - Inability to move both legs All Other Systems Reviewed And Are Negative: Yes Physical Exam - Summary Physical Exam Summary: VITAL SIGNS: Reviewed. GENERAL: Patient is an elderly, fragile male who is lying comfortable in the stretcher. Patient is not in any acute respiratory distress. HEAD AND FACE: No signs of trauma. No ecchymosis, hematomas or skull depressions. No sinus tenderness. EYES: PERRLA, EOMI x 2, No injected conjunctiva, no nystagmus. No photophobia. EARS: Hearing grossly intact. Ear canals and tympanic membranes are within normal limits. MOUTH: Oral mucosa is dry NECK: Supple, trachea is midline, no adenopathy, no JVD, no carotid bruit, no c- spine tenderness, neck with full ROM. No meningeal signs, no Kernig's or brudzinskis signs. CHEST: Symmetric, no tenderness at palpation LUNGS: Clear to auscultation bilaterally. No wheezing or crackles. CVS: Regular rate and rhythm, S1 and S2 present, no murmurs or gallops appreciated. ABDOMEN: Soft, non-tender. No signs of distention. No rebound no guarding, and no masses palpated. Bowel sounds are normal. EXTREMITIES: He has 1+ edema in bilateral lower extremities NEURO: Alert but not oriented x 3. No acute neurological deficits. Speech is normal and follows commands. He does not know the time. SKIN: Dry and warm Triage Information Reviewed: Yes Vital Signs On Initial Exam: Initial Vitals Pulse BP Pulse Ox 84 153/78 94 09/18/17 14:13 09/18/17 14:13 09/18/17 14:13 Vital Signs Reviewed: Yes Diagnostics - Vital Signs Vital Signs Temp Pulse Resp BP Pulse Ox 09/18/17 19:01 98.4 F 74 16 204/73 96 09/18/17 18:00 70 94 09/18/17 17:43 70 201/79 94 09/18/17 17:13 70 164/77 95 09/18/17 17:01 71 96 09/18/17 16:59 71 191/81 96 09/18/17 16:56 77 200/89 96 09/18/17 16:13 70 166/112 96 09/18/17 16:00 70 98 09/18/17 15:43 70 132/59 97 09/18/17 15:13 70 146/82 97 09/18/17 15:00 71 97 09/18/17 14:32 98.1 F 82 18 153/78 96 09/18/17 14:14 82 96 09/18/17 14:13 84 153/78 94 - Laboratory Lab Results: Lab Results 09/18/17 09/18/17 09/18/17 Range/Units 14:35 14:35 14:35 WBC 5.8 (3.5-10.8) 10^3/ul RBC 3.96 L (4.0-5.4) 10^6/ul Hgb 12.9 L (14.0-18.0) g/dl Hct 38 L (42-52) % MCV 96 H (80-94) fL MCH 33 H (27-31) pg MCHC 34 (31-36) g/dl RDW 13 (10.5-15) % Plt Count 191 (150-450) 10^3/ul MPV 7.6 (7.4-10.4) um3 Neut % (Auto) 58.8 (38-83) % Lymph % (Auto) 28.1 (25-47) % [place] % (Auto) 9.9 H (0-7) % Eos % (Auto) 2.5 (0-6) % Baso % (Auto) 0.7 (0-2) % Absolute Neuts (auto) 3.4 (1.5-7.7) 10^3/ul Absolute Lymphs (auto) 1.6 (1.0-4.8) 10^3/ul Absolute Monos (auto) 0.6 (0-0.8) 10^3/ul Absolute Eos (auto) 0.1 (0-0.6) 10^3/ul Absolute Basos (auto) 0 (0-0.2) 10^3/ul Absolute Nucleated RBC 0 10^3/ul Nucleated RBC % 0.1 INR (Anticoag Therapy) 0.97 (0.77-1.02) APTT 30.2 (26.0-36.3) seconds Sodium 138 L (139-145) mmol/L Potassium 3.8 (3.5-5.0) mmol/L Chloride 104 (101-111) mmol/L Carbon Dioxide 28 (22-32) mmol/L Anion Gap 6 (2-11) mmol/L BUN 14 (6-24) mg/dL Creatinine 0.88 (0.67-1.17) mg/dL Est GFR ( Amer) 104.9 (>60) Est GFR (Non-Af Amer) 81.5 (>60) BUN/Creatinine Ratio 15.9 (8-20) Glucose 152 H (70-100) mg/dL Lactic Acid (0.5-2.0) mmol/L Calcium 9.4 (8.6-10.3) mg/dL Total Bilirubin 0.50 (0.2-1.0) mg/dL AST 17 (13-39) U/L ALT 12 (7-52) U/L Alkaline Phosphatase 69 (34-104) U/L Troponin I 0.01 (<0.04) ng/mL Total Protein 6.0 L (6.4-8.9) g/dL Albumin 3.7 (3.2-5.2) g/dL Globulin 2.3 (2-4) g/dL Albumin/Globulin Ratio 1.6 (1-3) Triglycerides 168 mg/dL Cholesterol 159 mg/dL LDL Cholesterol 68 mg/dL HDL Cholesterol 57.2 mg/dL Urine Color Urine Appearance Urine pH (5-9) Ur Specific [place] (1.010-1.030) Urine Protein (Negative) Urine Ketones (Negative) Urine Blood (Negative) Urine Nitrate (Negative) Urine Bilirubin (Negative) Urine Urobilinogen (Negative) Ur Leukocyte Esterase (Negative) Urine WBC (Auto) (Absent) Urine RBC (Auto) (Absent) Ur Squamous Epith Cells (Absent) Urine Bacteria (Absent) Urine Glucose (Negative) Urine Ascorbic Acid (Negative) Blood Type Antibody Screen 09/18/17 09/18/17 09/18/17 Range/Units 14:35 14:35 15:07 WBC (3.5-10.8) 10^3/ul RBC (4.0-5.4) 10^6/ul Hgb (14.0-18.0) g/dl Hct (42-52) % MCV (80-94) fL MCH (27-31) pg MCHC (31-36) g/dl RDW (10.5-15) % Plt Count (150-450) 10^3/ul MPV (7.4-10.4) um3 Neut % (Auto) (38-83) % Lymph % (Auto) (25-47) % [place] % (Auto) (0-7) % Eos % (Auto) (0-6) % Baso % (Auto) (0-2) % Absolute Neuts (auto) (1.5-7.7) 10^3/ul Absolute Lymphs (auto) (1.0-4.8) 10^3/ul Absolute Monos (auto) (0-0.8) 10^3/ul Absolute Eos (auto) (0-0.6) 10^3/ul Absolute Basos (auto) (0-0.2) 10^3/ul Absolute Nucleated RBC 10^3/ul Nucleated RBC % INR (Anticoag Therapy) (0.77-1.02) APTT (26.0-36.3) seconds Sodium (139-145) mmol/L Potassium (3.5-5.0) mmol/L Chloride (101-111) mmol/L Carbon Dioxide (22-32) mmol/L Anion Gap (2-11) mmol/L BUN (6-24) mg/dL Creatinine (0.67-1.17) mg/dL Est GFR ( Amer) (>60) Est GFR (Non-Af Amer) (>60) BUN/Creatinine Ratio (8-20) Glucose (70-100) mg/dL Lactic Acid 1.3 (0.5-2.0) mmol/L Calcium (8.6-10.3) mg/dL Total Bilirubin (0.2-1.0) mg/dL AST (13-39) U/L ALT (7-52) U/L Alkaline Phosphatase (34-104) U/L Troponin I (<0.04) ng/mL Total Protein (6.4-8.9) g/dL Albumin (3.2-5.2) g/dL Globulin (2-4) g/dL Albumin/Globulin Ratio (1-3) Triglycerides mg/dL Cholesterol mg/dL LDL Cholesterol mg/dL HDL Cholesterol mg/dL Urine Color Straw Urine Appearance Clear Urine pH 6.0 (5-9) Ur Specific [place] 1.005 L (1.010-1.030) Urine Protein Negative (Negative) Urine Ketones Negative (Negative) Urine Blood Negative (Negative) Urine Nitrate Negative (Negative) Urine Bilirubin Negative (Negative) Urine Urobilinogen Negative (Negative) Ur Leukocyte Esterase 1+ A (Negative) Urine WBC (Auto) Trace(0-5/hpf) (Absent) Urine RBC (Auto) Absent (Absent) Ur Squamous Epith Cells Present A (Absent) Urine Bacteria Absent (Absent) Urine Glucose Negative (Negative) Urine Ascorbic Acid * A (Negative) Blood Type O Positive Antibody Screen Negative 09/18/17 Range/Units 17:51 WBC (3.5-10.8) 10^3/ul RBC (4.0-5.4) 10^6/ul Hgb (14.0-18.0) g/dl Hct (42-52) % MCV (80-94) fL MCH (27-31) pg MCHC (31-36) g/dl RDW (10.5-15) % Plt Count (150-450) 10^3/ul MPV (7.4-10.4) um3 Neut % (Auto) (38-83) % Lymph % (Auto) (25-47) % [place] % (Auto) (0-7) % Eos % (Auto) (0-6) % Baso % (Auto) (0-2) % Absolute Neuts (auto) (1.5-7.7) 10^3/ul Absolute Lymphs (auto) (1.0-4.8) 10^3/ul Absolute Monos (auto) (0-0.8) 10^3/ul Absolute Eos (auto) (0-0.6) 10^3/ul Absolute Basos (auto) (0-0.2) 10^3/ul Absolute Nucleated RBC 10^3/ul Nucleated RBC % INR (Anticoag Therapy) (0.77-1.02) APTT (26.0-36.3) seconds Sodium (139-145) mmol/L Potassium (3.5-5.0) mmol/L Chloride (101-111) mmol/L Carbon Dioxide (22-32) mmol/L Anion Gap (2-11) mmol/L BUN (6-24) mg/dL Creatinine (0.67-1.17) mg/dL Est GFR ( Amer) (>60) Est GFR (Non-Af Amer) (>60) BUN/Creatinine Ratio (8-20) Glucose (70-100) mg/dL Lactic Acid (0.5-2.0) mmol/L Calcium (8.6-10.3) mg/dL Total Bilirubin (0.2-1.0) mg/dL AST (13-39) U/L ALT (7-52) U/L Alkaline Phosphatase (34-104) U/L Troponin I 0.01 (<0.04) ng/mL Total Protein (6.4-8.9) g/dL Albumin (3.2-5.2) g/dL Globulin (2-4) g/dL Albumin/Globulin Ratio (1-3) Triglycerides mg/dL Cholesterol mg/dL LDL Cholesterol mg/dL HDL Cholesterol mg/dL Urine Color Urine Appearance Urine pH (5-9) Ur Specific [place] (1.010-1.030) Urine Protein (Negative) Urine Ketones (Negative) Urine Blood (Negative) Urine Nitrate (Negative) Urine Bilirubin (Negative) Urine Urobilinogen (Negative) Ur Leukocyte Esterase (Negative) Urine WBC (Auto) (Absent) Urine RBC (Auto) (Absent) Ur Squamous Epith Cells (Absent) Urine Bacteria (Absent) Urine Glucose (Negative) Urine Ascorbic Acid (Negative) Blood Type Antibody Screen Result Diagrams: 09/18/17 14:35 09/18/17 14:35 Lab Statement: Any lab studies that have been ordered have been reviewed, and results considered in the medical decision making process. - CT Brain CT Interpretation Completed By: Radiologist - 1. NO ACUTE INTRACRANIAL PATHOLOGY. 2. 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 ED physician has reviewed this report. ED physician has reviewed this report. - EKG 14:24 EKG Interpretation: Atrial-ventricular dual-paced rhthym at 70 BPM. EKG Comparison: No Significant Change - Similar to previous EKGS Chest Pain Course/Dx - Course Assessment/Plan: This patient is a 87-year-old male who presents to the emergency department via ambulance after he was transferred from retirement with a chief complaint of chest pain, bilateral lower extremity weakness and chest pain. Blood test results without any significant abnormality except for hemoglobin of 12.9 and hematocrit 38, glucose 152, urinalysis is negative for UTI. Troponin 4 hours apart is 0.01. Therefore I have no suspicion for an acute coronary syndrome. Head CT IMPRESSION: 1. NO ACUTE INTRACRANIAL PATHOLOGY. 2. 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 Patients weakness has resolved after the patient was hydrated, patient reports that he is feeling better. He continues to be alert and oriented 3. Before I discharge the patient and I will for the patient to the chest x-ray since the patient did not get one during his stay. The patient declined because he says that he does have any cough, did not have any shortness of breath but he doesnt have any chest pain now. The patients daughter and also agreed. They feel comfortable taking the patient home and follow up with the primary care physician. I discussed all the findings and test results with the patient. Patient was instructed to return to the emergency room immediately if any of the symptoms return or worsens. Plan of care was discussed with the patient and understands and agrees. All questions were answered at patient satisfaction. There were no further complaints or concerns. Lung exam before discharge: CTA B/L. Good air exchange. No wheezing or crackles heard. CVS: S1 and S2 present. No murmurs appreciated. Patient is alert and oriented x 3. Patient is hemodynamically stable. Patient will be discharged home with follow up PCP in the next 2-3 days - Chest Pain Differential Diagnosis/HQI/PQRI: Acute TX, ACS, Angina, CHF, Chest Wall, GI Disease, Lower Respiratory Infection - Diagnoses Provider Diagnoses: Chest pain, Weakness Discharge - Sign-Out/Discharge Documenting (check all that apply): Discharge/Admit/Transfer - Discharge Plan Condition: Stable Disposition: HOME Patient Education Materials: Chest Pain (ED), Weakness (ED) Referrals: [facility] PHYSICIAN REFERRAL [Outside] - 3 Days No Primary Care Phys,NOPCP [Primary Care Provider] - Additional Instructions: FOLLOW UP WITH PRIMARY CARE PROVIDER IN 3 DAYS. RETURN TO EMERGENCY DEPARTMENT FOR ANY WORSENING OR NEW SYMPTOMS. - Billing Disposition and Condition Condition: STABLE Disposition: Home NIH Scale - NIH Scale Level of Consciousness: Alert/Keenly Responsive Ask Patient the Month and His/Her Age: Neither Correct/Aphasic Ask Pt to Open/Close Eyes and Stamp Presser/Release Non-Paretic Hand: Both Correctly Best Gaze (Only Horizontal Eye Movement): Normal Visual Field Testing: No Visual Loss Facial Paresis-Pt to Smile & Close Eyes or Grimace Symmetry: Normal/Symmetrical Motor Function - Right Arm: No Drift-Holds 10 Seconds Motor Function - Left Arm: No Drift-Holds 10 Seconds Motor Function - Right Leg: No Drift-Holds 10 Seconds Motor Function - Left Leg: No Drift-Holds 10 Seconds Limb Ataxia-Must be out of Proportion to Weakness Present: Absent Sensory (Use Pinprick to Test Arms/Legs/Trunk/Face): Normal Best Language (Describe Picture, Name Items): No Aphasia Dysarthria (Read Several Words): Normal Extinction and Inattention: No Abnormality Total Score: 2 The documentation as recorded by the Petros keith Tiffany accurately reflects the service I personally performed and the decisions made by , Everton Cardenas MD.
[2017-09-18 19:32] VITALS: BP 170/72
== END 2017-09-18 19:30 | disposition home or self-care (01) ==
LOC: ED 14:09
DX: R07.9 Chest pain, unspecified (principal); R53.1 Weakness; I10 Essential (primary) hypertension; F03.90 Unspecified dementia, unspecified severity, without behavioral disturbance, psychotic disturbance, mood disturbance, and anxiety; Z79.899 Other long term (current) drug therapy; Z86.73 Personal history of transient ischemic attack (TIA), and cerebral infarction without residual deficits; Z87.898 Personal history of other specified conditions
CPT/HCPCS: 36415; 70450; 80053; 80061; 81003; 81015; 83605; 84484; 85025; 85610; 85730; 86850; 86900; 86901; 87086; 93005; 96360; 96361; 99284; A9270-GY